=== PATIENT | male | born 1945 | race Caucasian/White ===

== ENCOUNTER → 2018-11-23 | Outpatient (CLI) | payer MEDICARE, BC ==
[~2018-11-23] MED LIST: BRILINTA90 MG PO; COREG6.25 MG PO; GLUCOPHAGE XR500 MG PO; LEVOTHYROXINE 0.15MG PO; LIPITOR 20 MG T20 M1 PO; LISINOPRIL2.5 MG PO; NITROGLYCERIN0.4 MG SUBLING
== END ==
LOC: M.MRI 16:03
DX: S32.050A Wedge compression fracture of fifth lumbar vertebra, initial encounter for closed fracture (principal); X58.XXXA Exposure to other specified factors, initial encounter; Y93.89 Activity, other specified; Y92.89 Other specified places as the place of occurrence of the external cause; Y99.8 Other external cause status